=== PATIENT | female | born 2000 | race Caucasian/White ===

== ENCOUNTER 2025-01-11 15:53 | Emergency (ER) | payer BC, SELFPAY ==
[2025-01-11 16:01] VITALS: BP 116/85; PULSE 84; TEMP 36.7; O2SAT 100; BMI 26.5
--- NOTE | 2025-01-11 16:17 | ED_ITS ---
HPI - Nausea/Vomiting/Diarrhea General Chief complaint: Nausea/Vomiting/Diarrhea Stated complaint: Nausea/Vomiting/9 weeks Time Seen by Provider: 01/11/25 16:10 Source: patient Mode of arrival: walk-in History of Present Illness HPI Narrative: 24-year-old female at approximately 9 weeks gestation presents with persistent vomiting since last night. She is unable to quantify the number of episodes but reports that she was able to keep down her seizure medication for about 2 hours before vomiting again. She denies hematemesis, abdominal pain, cramping, back pain, lightheadedness, dizziness, abnormal stools, abnormal urina tion, vaginal discharge, or vaginal bleeding. She has a scheduled OB appointment on Saturday. No prior similar episodes in this . Medical [facility] Related Data Previous Rx's ?Medication ?Instructions ?Recorded metoclopramide HCl 10 mg tablet 10 mg PO Q6H PRN nause a and 01/11/25 (Reglan) vomiting #14 tabs Allergies Allergy/AdvReac Type Severity Reaction Status Date / Time No Known Drug Allergies Allergy Verified 01/11/25 16:05 PFSH PFS Social History Little interest or pleasure in doing things: not at all Feeling down, depressed, or hopeless: not at all Exam Narrative Exam Narrative: * General:?Alert, well-appearing, no acute distress. * HEENT:?Mucous membranes dry, no oropharyngeal lesions, no scleral icterus * Cardiac:?Regular rate and rhythm, no murmurs, rubs, or gallops. * Respiratory:?Clear to auscultation bilaterally, no rales, wheezes, or rhonchi. * Abdomen:?Soft, non-tender, non-distended, no rebound or guarding, no palpable masses, normal bowel sounds. * Extremities:?No edema, normal capillary refill. * Neuro:?Alert and oriented x3, no focal deficits * Skin:?Warm, dry, no rashes. Constitutional Vital Signs, click to edit/add: Last Vital Signs Temp 98.1 F 01/11/25 16:01 Pulse 77 01/11/25 18:28 Resp 18 01/11/25 18:28 BP 118/83 01/11/25 18:28 Pulse Ox 100 01/11/25 18:28 O2 Del Method Room Air 01/11/25 18:28 Course Vital Signs Vital signs: Vital Signs Temperature 98.1 F 01/11/25 16:01 Pulse Rate 84 01/11/25 16:01 Respiratory Rate 18 01/11/25 16:01 Blood Pressure 116/85 01/11/25 16:01 Pulse Oximetry 100 01/11/25 16:01 Oxygen Delivery Method Room Air 01/11/25 16:01 Temperature 98.1 F 01/11/25 16:01 Pulse Rate 77 01/11/25 18:28 Respiratory Rate 18 01/11/25 18:28 Blood Pressure 118/83 01/11/25 18:28 Pulse Oximetry 100 01/11/25 18:28 Oxygen Delivery Method Room Air 01/11/25 18:28 MDM - Nausea/Vomiting/Diarrhea MDM Narrative Medical decision making narrative: This is a 24-year-old female at 9 weeks gestation presenting with acute onset vomiting. Differential includes hyperemesis gravidarum, viral gastroenteritis, and less likely, other causes of nausea/vomiting in . She is hemodynamically stable and denies concerning symptoms such as abdominal pain, vaginal bleeding, or signs of dehydration. Labs were obtained and are within normal limits, ruling out significant electrolyte disturbance or other acute pathology. She received IV fluids and antiemetic therapy (Reglan) in the ED with good response. She tolerated a PO challenge and is now able to keep down fluids. She is safe for discharge with a prescription for Reglan and instructions to maintain oral hydration. She is to follow up with her OB as scheduled and return to the ED for worsening symptoms, inability to tolerate PO, or new symptoms such as abdominal pain or vaginal bleeding. Medical Records Attestation: I reviewed the patient's medical records. Lab Data Attestation: I reviewed the patient's lab results. Labs: Lab Results 01/11/25 01/11/25 Range/Units 16:23 17:18 WBC 8.3 (4.0-11.0) 10^3/uL RBC 4.56 (4.20-5.40) 10^6/uL Hgb 13.3 (12.0-16.0) g/dL Hct 37.7 (36.0-48.0) % MCV 82.7 (81.0-99.0) fL MCH 29.2 (26.7-34.0) pg MCHC 35.3 H (29.9-35.2) g/dL RDW 13.1 (11.0-15.0) % Plt Count 317 (150-450) 10^3/uL MPV 9.5 (9.5-13.5) fL Neut % (Auto) 71.6 (43.0-75.0) % Lymph % (Auto) 22.0 (20.5-60.0) % [place] % (Auto) 5.2 (1.7-12.0) % Eos % (Auto) 0.6 L (0.9-7.0) % Baso % (Auto) 0.5 (0.2-2.0) % Neut # (Auto) 5.9 (1.4-6.5) 10^3/uL Lymph # (Auto) 1.8 (1.2-3.8) 10^3/uL [place] # (Auto) 0.4 (0.3-0.8) 10^3/uL Eos # (Auto) 0.1 (0.0-0.7) 10^3/uL Baso # (Auto) 0.0 (0.0-0.1) 10^3/uL Abs Immat Gran (auto) 0.01 (0.00-0.03) 10^3/uL Imm/Tot Granulo (auto) 0.1 (0.0-0.5) % Sodium 136 (136-145) mmol/L Potassium 3.8 (3.5-5.1) mmol/L Chloride 100 (98-107) mmol/L Carbon Dioxide 24.0 (21.0-32.0) mmol/L Anion Gap 15.8 BUN 6.0 L (7.0-18.0) mg/dL Creatinine 0.43 L (0.55-1.02) mg/dL Est GFR ( Amer) >60 (>=60 mL/min/1.73m^2) Est GFR (Non-Af Amer) >60 (>=60 mL/min/1.73m^2) BUN/Creatinine Ratio 14.0 Glucose 79 (74-106) mg/dL Calcium 9.2 (8.5-10.1) mg/dL Magnesium 1.9 (1.8-2.4) mg/dL Total Bilirubin 0.4 (0.2-1.0) mg/dL AST 15 (15-37) U/L ALT 17 (14-59) U/L Alkaline Phosphatase 61 (46-116) U/L Total Protein 7.5 (6.4-8.2) g/dL Albumin 3.8 (3.4-5.0) g/dL Globulin 3.7 g/dL Albumin/Globulin Ratio 1.0 Urine Color Lt. yellow (YELLOW) Urine Clarity Clear (CLEAR) Urine pH 6.0 (5.0-9.0) Ur Specific [place] 1.010 (1.005-1.025) Urine Protein Negative (NEG/TRACE) mg/dL Urine Glucose (UA) Negative (NEGATIVE) mg/dL Urine Ketones 40 A (NEGATIVE) mg/dL Urine Occult Blood Negative (NEGATIVE) Urine Nitrite Negative (NEGATIVE) Urine Bilirubin Negative (NEGATIVE) Urine Urobilinogen 0.2 (0.2-1.0) EU/dL Ur Leukocyte Esterase Negative (NEGATIVE) Discharge Plan Discharge Chief Complaint: Nausea/Vomiting/Diarrhea Clinical Impression: Hyperemesis gravidarum Patient Disposition: Home, Self-Care Time of Disposition Decision: 17:52 Condition: Good Mode of Transportation: Private Vehicle Prescriptions / Home Meds: New metoclopramide HCl [Reglan] 10 mg tablet 10 mg PO Q6H PRN (Reason: nausea and vomiting) Qty: 14 0RF Print Language: Greek Instructions: Hyperemesis Gravidarum (ED) Additional Instructions: Follow-up with business analyst intern next week as scheduled. Progress diet as tolerated. Continue vitamins. Please return with any worse or concerning symptoms. Referrals: Dyana Christianson MD [Primary Care Provider] - 1 week Discharge Date/Time: 01/11/25 18:29
[2025-01-11] MEDS: 0.9 % SODIUM CHLORIDE 1,000 ML 999 ML IV (16:35)
[2025-01-11] MEDS: METOCLOPRAMIDE HCL 10 MG/2 ML VIAL IVP (16:35)
[2025-01-11] MEDS: DIPHENHYDRAMINE HCL 50 MG/ML VIAL 25 MG IVP (16:35)
[2025-01-11 16:53] LABS: Hematocrit 37.7 % (36.0-48.0); Hemoglobin 13.3 g/dL (12.0-16.0); Immature Granulocytes Abs Auto 0.01 10^3/uL (0.00-0.03); Immature Granulocytes Pct Auto 0.1 % (0.0-0.5); Lymphocytes Absolute Auto 1.8 10^3/uL (1.2-3.8); Mean Corpuscular HGB Conc 35.3 g/dL (29.9-35.2); Mean Corpuscular Hemoglobin 29.2 pg (26.7-34.0); Mean Corpuscular Volume 82.7 fL (81.0-99.0); Platelet Count 317 10^3/uL (150-450); Red Blood Count 4.56 10^6/uL (4.20-5.40); White Blood Count 8.3 10^3/uL (4.0-11.0)
[2025-01-11 17:13] LABS: Alanine Aminotransferase 17 U/L (14-59); Albumin Globulin Ratio 1.0; Albumin Level 3.8 g/dL (3.4-5.0); Alkaline Phosphatase 61 U/L (46-116); Anion Gap 15.8; Aspartate Amino Transferase 15 U/L (15-37); Blood Urea Nitrogen 6.0 mg/dL (7.0-18.0); Calcium 9.2 mg/dL (8.5-10.1); Carbon Dioxide 24.0 mmol/L (21.0-32.0); Chloride 100 mmol/L (98-107); Estimated GFR (African America >60 (>=60 mL/min/1.73m^2); Estimated GFR (Non-African Ame >60 (>=60 mL/min/1.73m^2); Globulin 3.7 g/dL; Glucose 79 mg/dL (74-106); Magnesium 1.9 mg/dL (1.8-2.4); Potassium 3.8 mmol/L (3.5-5.1); Sodium 136 mmol/L (136-145); Total Protein 7.5 g/dL (6.4-8.2)
[2025-01-11 17:33] LABS: Glucose Urine UA NEGATIVE (NEGATIVE)
[2025-01-11 18:28] VITALS: BP 118/83; PULSE 77; O2SAT 100
== END 2025-01-11 18:29 | disposition home or self-care (01) ==
PROVIDERS: Physician Assistant; Emergency Provider Emergency Medicine; PCP Student in an Organized Health Care Education/Training Program
DX: O21.0 Mild hyperemesis gravidarum (principal); Z3A.09 9 weeks gestation of pregnancy
CPT/HCPCS: 36415; 80053; 81003; 83735; 85025; 96361; 96374; 96375; 99285; J1200; J2765